=== PATIENT | female | born 1955 | race Caucasian/White ===

== ENCOUNTER 2017-06-30 13:53 | Outpatient (CLI) | payer BC ==
--- NOTE | 2017-06-30 15:45 | MRI ---
CERVICAL SPINE MRI NONCONTRAST 06/30/17 INDICATION: Neck pain. History of Chiari malformation. Reference is made to 05/11/16. FINDINGS: Redemonstration of a anna shaped low lying cerebellar tonsils compatible with Chiari I malformation. There is no associated hydrosyringomyelia of the cervical spine. There is no significant new disc bu lge or extrinsic mass effect upon cervical spinal cord. Prior mild multilevel degenerative change thr oughout the cervical spine is stable, without significant central canal stenosis. Previously describe d multilevel mild to moderate bilateral neural foraminal narrowing spanning C3-4 through C6-7 segment s is grossly stable. No intrinsic cord signal abnormality is present. IMPRESSION: 1. Stable mild multilevel degenerative change of the cervical spine. 2. Redemonstration of Chiari I malformation. No hydrosyringomyelia or intramedullary signal abno rmality of the cervical spinal cord demonstrated. 3. The previously described 1 mm focus of T2 signal at the high cervical spinal cord is within n ormal size limits of the typical configuration of the central spinal canal. This does not meet size c riteria for definition of hydrosyringomyelia. POS: [facility]
== END 2017-06-30 13:54 | disposition home or self-care (01) ==
LOC: TBSIIMAG 13:53
PROVIDERS: ATTEND Neurological Surgery
DX: Q07.00 Arnold-Chiari syndrome without spina bifida or hydrocephalus (principal); M47.812 Spondylosis without myelopathy or radiculopathy, cervical region
CPT/HCPCS: 72141

== ENCOUNTER 2018-07-16 10:50 | Emergency (ER) | payer MEDICARE, BC ==
--- NOTE | 2018-07-16 11:44 | RAD ---
LEFT FOOT 3 VIEWS: Date: 07/16/18 INDICATION: Left foot injury. COMPARISON: None. FINDINGS: There is a small accessory ossicle adjacent to the cuboid. There is scattered midfoot and forefoot os teoporosis. Enthesopathic change is seen off of the calcaneus. Lisfranc alignment is preserved. No de finite acute fracture is noted. IMPRESSION: No acute osseous abnormality. POS: [facility]
[2018-07-16] MEDS ORDERED: Ibuprofen 600 MG TAB ONE (12:05)
== END 2018-07-16 12:06 | disposition home or self-care (01) ==
LOC: SCSER 10:50
DX: S96.912A Strain of unspecified muscle and tendon at ankle and foot level, left foot, initial encounter (principal); G43.909 Migraine, unspecified, not intractable, without status migrainosus; E03.9 Hypothyroidism, unspecified; I10 Essential (primary) hypertension; Z79.899 Other long term (current) drug therapy; X50.9XXA Other and unspecified overexertion or strenuous movements or postures, initial encounter

== ENCOUNTER 2018-09-07 15:05 | Outpatient (CLI) | payer MEDICARE, BC | END 2018-09-07 15:06 | disposition home or self-care (01) | LOC: BICMAMMO 15:05 | PROVIDERS: ATTEND Obstetrics & Gynecology | DX: Z12.31 Encounter for screening mammogram for malignant neoplasm of breast (principal); Z80.3 Family history of malignant neoplasm of breast | CPT/HCPCS: 77063; 77067 ==

== ENCOUNTER 2019-06-05 10:27 | Outpatient (CLI) | payer MEDICARE, BC ==
--- NOTE | 2019-06-05 11:52 | MRI ---
CERVICAL SPINE MRI WITHOUT CONTRAST: DATE: 06/05/2019. COMPARISON: 06/30/2017. HISTORY: Dizziness, vertigo, Chiari malformation. TECHNIQUE: Multiplanar multisequence MR imaging of the cervical spine provided without contrast. FINDINGS: There is stable moderate degenerative change at the atlantoaxial interspace. The craniocervical junct ion appears intact. As seen on the prior examination, the tonsillar pillars extend below the level of the foramen magnum by at least 1 cm, consistent with a Chiari I malformation. C2-3: There is disc desiccation and minimal disc bulge with no significant central canal stenosis. Mi ld bilateral facet hypertrophy. No significant neural foraminal stenosis. C3-4: Mild bilateral facet hypertrophy and uncovertebral osteophyte formation, left greater than righ t. There is mild anterior osteophyte formation. No significant central canal or neural foraminal stenosis. C4-5: There is disc desiccation. There is facet and uncovertebral osteophyte formation on the left wi th moderate left neural foraminal stenosis. No significant central canal stenosis. C5-6: Mild bilateral facet and uncovertebral osteophyte formation. Mild disc space narrowing and disc desiccation. Mild left neural foraminal stenosis. No significant central canal or right neural foraminal stenosis. C6-7: Disc space narrowing and disc desiccation. Mild bilateral facet hypertrophy. No significant valerio tral canal or neural foraminal stenosis. C7-T1: No significant central canal or neural foraminal stenosis. There is no focal area of abnormal signal intensity identified within the cervical cord. IMPRESSION: Cervical spine degenerative change as detailed above. Stable Chiari I malformation with no evidence f or a cervical cord syrinx. Transcribed Date/Time: 06/05/2019 12:09 PM
== END 2019-06-05 10:28 | disposition home or self-care (01) ==
LOC: TBSIIMAG 10:27
PROVIDERS: ATTEND Neurological Surgery
DX: Q07.00 Arnold-Chiari syndrome without spina bifida or hydrocephalus (principal); G93.5 Compression of brain; M47.812 Spondylosis without myelopathy or radiculopathy, cervical region
CPT/HCPCS: 72141

== ENCOUNTER 2019-09-13 11:38 | Outpatient (CLI) | payer MEDICARE, BC ==
--- NOTE | 2019-09-13 13:06 | MMO ---
Bilateral MAMMO Bilat Screen [facility]. CLINICAL HISTORY: Patient is 64 years old and is seen for screening. VIEWS: The views performed were: . FILMS COMPARED: The present examination has been compared to prior imaging studies performed at [facility] on 06/27/2015, 07/22/2016, 09/07/2018 and 09/13/2019. This study has been interpreted with the assistance of computer-aided detection. MAMMOGRAM FINDINGS: There are scattered fibroglandular densities. There are no suspicious masses, suspicious calcifications, or new areas of architectural distortion. IMPRESSION: THERE IS NO MAMMOGRAPHIC EVIDENCE OF MALIGNANCY. A ROUTINE FOLLOW-UP MAMMOGRAM IN 1 YEAR IS RECOMMENDED. THE RESULTS OF THIS EXAM WERE SENT TO THE PATIENT. ACR BI-RADS Category 1 - Negative MAMMOGRAPHY NOTE: 1. A negative mammogram report should not delay a biopsy if a dominant of clinically suspicious mass is present. 2. Approximately 10% to 15% of breast cancers are not detected by mammography. 3. Adenosis and dense breasts may obscure an underlying neoplasm. Reported by: JES BETANCOURT MD Electonically Signed: [id number]
== END 2019-09-13 11:39 | disposition home or self-care (01) ==
LOC: BICMAMMO 11:38
PROVIDERS: ATTEND Obstetrics & Gynecology
DX: Z12.31 Encounter for screening mammogram for malignant neoplasm of breast (principal)
CPT/HCPCS: 77063; 77067

== ENCOUNTER 2020-03-11 10:39 | Outpatient (CLI) | payer MEDICARE, BC ==
[2020-03-11] MEDS ORDERED: Iopamidol 370 76% 100 ML VIAL ONE (11:25)
--- NOTE | 2020-03-11 12:10 | CT ---
CT ABDOMEN AND PELVIS WITH IV COTNRAST: Oral contrast was administered. Multiplanar reconstruction. INDICATION: Right lower quadrant abdominal pain. COMPARISON: CT abdomen and pelvis 09/19/2018 at [facility]. FINDINGS: Lung bases clear. Liver, spleen, and pancreas unremarkable. Adrenal glands normal. Kidneys unremarkable. 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 These are stable. No urinary calculus. No hydronephrosis. Urinary bladder unremarkable. Small bowel loops normal caliber. Appendix appears normal. Small bowel appears normal with no mural thickening or inflammatory change. Colon appears unremarkable with scattered stool throughout. Aorta normal caliber. No adenopathy. Images through the pelvis show unremarkable uterus and adnexa. No free fluid. Osseous structures sh ow degenerative spine changes. Evidence of central canal stenosis at L3-4 and L4-5 due to degenerati ve spine change and facet hypertrophy. IMPRESSION: No acute intraabdominal process identified. POS: [facility]
== END 2020-03-11 10:40 | disposition home or self-care (01) ==
LOC: BICCT 10:39
PROVIDERS: ATTEND Internal Medicine Gastroenterology
DX: R10.31 Right lower quadrant pain (principal); D18.00 Hemangioma unspecified site
CPT/HCPCS: 74177; 82565

== ENCOUNTER 2020-11-27 08:38 | Outpatient (CLI) | payer MEDICARE, BC | END 2020-11-27 08:39 | disposition home or self-care (01) | LOC: BICMAMMO 08:38 | PROVIDERS: ATTEND Obstetrics & Gynecology | DX: Z12.31 Encounter for screening mammogram for malignant neoplasm of breast (principal); Z80.3 Family history of malignant neoplasm of breast | CPT/HCPCS: 77063; 77067 ==

== ENCOUNTER 2021-08-28 11:20 | Outpatient (CLI) | payer MEDICARE, BC | END 2021-08-28 11:21 | disposition home or self-care (01) | LOC: TBSIIMAG 11:20 | PROVIDERS: ATTEND Neurological Surgery | DX: G93.5 Compression of brain (principal); M47.812 Spondylosis without myelopathy or radiculopathy, cervical region | CPT/HCPCS: 72141 ==

== ENCOUNTER 2022-02-04 09:54 | Outpatient (CLI) | payer MEDICARE, BC | END 2022-02-04 09:55 | disposition home or self-care (01) | LOC: BICMAMMO 09:54 | PROVIDERS: ATTEND Internal Medicine | DX: Z12.31 Encounter for screening mammogram for malignant neoplasm of breast (principal); Z80.3 Family history of malignant neoplasm of breast | CPT/HCPCS: 77063; 77067 ==

== ENCOUNTER 2022-11-05 15:39 | Outpatient (CLI) | payer MEDICARE, BC | END 2022-11-05 15:40 | disposition home or self-care (01) | LOC: TBSIIMAG 15:39 | PROVIDERS: ATTEND Neurological Surgery | DX: Q07.00 Arnold-Chiari syndrome without spina bifida or hydrocephalus (principal); M48.02 Spinal stenosis, cervical region; M48.03 Spinal stenosis, cervicothoracic region; Q87.89 Other specified congenital malformation syndromes, not elsewhere classified | CPT/HCPCS: 72141 ==

== ENCOUNTER 2025-03-28 10:22 | Outpatient (CLI) | payer MEDICARE, BC | END 2025-03-28 10:23 | disposition home or self-care (01) | LOC: SCSRAD 10:22 | PROVIDERS: ATTEND Internal Medicine Cardiovascular Disease | DX: R06.02 Shortness of breath (principal); R06.00 Dyspnea, unspecified | CPT/HCPCS: 71046 ==